=== PATIENT | female | born 1990 | race Caucasian/White ===

== ENCOUNTER → 2018-10-12 09:21 | Outpatient (CLI) | payer MEDICAID ==
[2011-09-18 17:51] VITALS: BMI 25.6
== END | disposition home or self-care (01) ==
LOC: D.LDO 09:21
DX: O26.899 Other specified pregnancy related conditions, unspecified trimester (principal); Z3A.00 Weeks of gestation of pregnancy not specified

== ENCOUNTER 2019-02-25 21:40 | Inpatient (IN) | payer MEDICAID ==
[~2019-02-25] VITALS: Ht 157.5 cm; Wt 72.6 kg
[2019-02-25 22:43] LABS: APPEARANCE HAZY (CLEAR); BACTERIA NONE SEEN /hpf (NONE SEEN); BILIRUBIN NEGATIVE (NEGATIVE); COLOR YELLOW (YELLOW); EPITHELIAL CELLS OCC /hpf (0-5); GLUCOSE NEGATIVE (NEGATIVE); KETONE NEGATIVE (NEGATIVE); NITRITE NEGATIVE (NEGATIVE); PROTEIN NEGATIVE (NEGATIVE); RED CELLS - URINE 0-5 /hpf (0-5); UROBILINOGEN NORMAL (NORMAL); WHITE CELLS - URINE RARE /hpf (0-5)
[2019-02-25 22:44] LABS: AMORPHOUS SEDIMENT >1+ /lpf (NONE SEEN)
[2019-02-25 22:46] LABS: UDS - AMPHET NEGATIVE QUAL (NEGATIVE); UDS - BARB NEGATIVE QUAL (NEGATIVE); UDS - BENZO NEGATIVE QUAL (NEGATIVE); UDS - COCAINE NEGATIVE QUAL (NEGATIVE); UDS - OPIATE NEGATIVE QUAL (NEGATIVE); UDS - PCP NEGATIVE QUAL (NEGATIVE); UDS - THC NEGATIVE QUAL (NEGATIVE)
[2019-02-26] MEDS ORDERED: TUMS X-STR300 MG PO (00:16)
[2019-02-26] MEDS ORDERED: PRENAVITE1 TAB PO (00:17)
[2019-02-26] MEDS ORDERED: OS-CAL500 MG PO (00:22)
[2019-02-26 00:24] VITALS: BP 128/82; Ht 157.5 cm; Wt 72.6 kg
[2019-02-26 00:55] LABS: HEMATOCRIT 33.5 % (36.0-48.0); HEMOGLOBIN 11.6 g/dL (12-16); MCH 29.7 pg (26.0-34.0); MCHC 34.6 g/dL (31.0-37.0); MCV 85.9 fL (80.0-100.0); MEAN PLATELET VOLUME 10.5 fL (7.4-10.4); RBC 3.9 10x6/uL (4.00-5.40); WBC 13.8 10x3/uL (4.8-10.8)
--- NOTE | 2019-02-26 12:15 | NUR ---
PT TRANSFERRED TO PP ROOM 1257 VIA W/C, FOB TRANSFERS BELONGINGS AND STAFF TRANSERS INFANT IN [facility]. PT ORIENTED TO NEW ROOM AND CALL LIGHT. PT REQUESTS MOTRIN FOR PAIN AND DECAF COFFEE WITH WATER. COFFEE AND WATER PROVIDED, WILL CONTACT MD REGARDING PT'S REQUEST FOR MOTRIN FOR PAIN.
--- NOTE | 2019-02-26 12:25 | NUR ---
DR JOSUE GIVES ORDERS FOR PP VAGINAL DELIVERY ORDER SET WITH MOTRIN 600MG PO Q6H PRN MILD PAIN AND NORCO 5/325MG PO Q4H PRN MOD-SEVERE PAIN.
--- NOTE | 2019-02-26 13:31 | NUR ---
THIS RN TO ROOM TO ADMIN MOTRIN TO PT REQUESTED. PT STATES PAIN IS NOW WORSE AND SHE WOULD LIKE TO TAKE SOMETHING STRONGER WELL. PT RATES PAIN 7/10 WITH , UTERINE CRAMPING AND PERINEAL PAIN. PT ADMIN PRN MOTRIN AND NORCO 5, SEE EMAR FOR DOC. PT ALSO PROVIDED WITH DERMAPLAST AND TUCKS FOR PERINEAL PAIN AND RECTAL PRESSURE. PT ENCOURAGED TO REST. INSTRUCTIONS GIVEN ON NOT SLEEPING WITH BABY IN BED. INFANT PLACED IN [place] PER PT REQUEST. PT INSTRUCTED TO CALL FOR ANY NEEDS. SRUx2, CL IN REACH. WILL CONT TO MONITOR.
--- NOTE | 2019-02-26 15:52 | NUR ---
Ice pack given per pt request. she rates pain/cramping at 0/10 at this time. side rails up x 2 with call light in reach.
--- NOTE | 2019-02-26 17:15 | NUR ---
THIS RN TO ROOM FOR PT CHECK. PT SITTING UP IN BED, TALKING WITH VISITOR. PT DENIES PAIN OR ANY NEEDS AT THIS TIME. SRUx2, CL IN REACH. WILL CONT TO MONITOR.
--- NOTE | 2019-02-26 18:11 | NUR ---
PT CALLS OUT [employer] SPECIALIST LIGHT WITH REQUEST FOR INFANT BLANKETS AND NURSE. THIS RN TO ROOM. BLANKETS PROVIDED. PT STATES INFANT WAS COUGHING/CHOKING ON SALIVA. THIS RN ASSESSES LUNG SOUNDS AND NOTED TO BE CLEAR x4. NO DISTRESS NOTED. PT REASSURED.
--- NOTE | 2019-02-26 19:15 | NUR ---
PT REC'D IN BATHROOM AT THIS TIME. DENIES PAIN. NO NEEDS VOICED AT THIS TIME. Ron CHA RN
--- NOTE | 2019-02-26 20:07 | NUR ---
PT MEDICATED WITH HYDROCODONE FOR CRAMPING. PAIN LEVEL OF 5 AT THIS TIME. WILL CONTINUE TO MONITOR. Ron CHA RN
[2019-02-26 21:53] VITALS: BP 112/53
--- NOTE | 2019-02-26 21:53 | NUR ---
PT REC'D IN BED AT THIS TIME. STATES PAIN IS A 2 AT THIS TIME. SALINE LOCK TO THE LEFT HAND INTACT AT THIS TIME. LUNGS CLEAR. BS+. FUNDUS FIRM AND MIDLINE U/2. SMALL LOCHIA NOTED. PT VOIDIND WELL AFTER DELIVERY. NO ACUTE DISTRESS NOTED. SIDERAIL UP FOR SAFETY. CALL LIGHT IN PT REACH. Ron CHA RN
--- NOTE | 2019-02-26 22:58 | NUR ---
PT REC'D IN BED AT THIS TIME. TOLERATING REGULAR DIET AT THIS TIME. NO DISTRESS NOTED AT THIS TIME. Ron CHA RN
--- NOTE | 2019-02-27 00:15 | NUR ---
PT RESTING AT THIS TIME. NO NEEDS VOICED. Ron CHA RN
--- NOTE | 2019-02-27 01:49 | NUR ---
PT MEDICATED WITH HYDROCODONE FOR PAIN LEVEL OF 7. WILL CONTINUE TO MONITOR. Ron CHA RN
--- NOTE | 2019-02-27 02:55 | NUR ---
PT ASLEEP AT THIS TIME. EASILY AWAKENED. PAIN IS 0 AT THIS TIME. WILL CONTINUE TO MONITOR. Ron CHA RN
--- NOTE | 2019-02-27 05:30 | NUR ---
PT REC'D ASLEEP AT THIS TIME. DID NOT AWAKEN. Ron CHA RN
[2019-02-27 07:18] LABS: RAPID PLASMA REAGIN Non Reactive (Non Reactive)
[2019-02-27 07:27] LABS: BASOPHILS 0.1 % (0-2); EOSINOPHILS 1.2 % (0-7); HEMATOCRIT 31.5 % (36.0-48.0); HEMOGLOBIN 10.6 g/dL (12-16); IMMATURE GRANULOCYTES 0.4 % (0-5); LYMPHOCYTES 17.4 % (15-50); MCH 29.5 pg (26.0-34.0); MCHC 33.7 g/dL (31.0-37.0); MCV 87.7 fL (80.0-100.0); MEAN PLATELET VOLUME 10.7 fL (7.4-10.4); MONOCYTES 5.3 % (2-11); NEUTROPHILS 75.6 % (40-80); PLATELET COUNT 147 10x3/uL (130-400); RBC 3.59 10x6/uL (4.00-5.40); WBC 13.9 10x3/uL (4.8-10.8)
--- NOTE | 2019-02-27 08:00 | NUR ---
AM ASSESSMENT COMPLETED CHARTED ON FLOWSHEET. MOTRIN GIVEN REQUESTED, PT STATES UNDERSTANDING THAT NORCO 5/325MG IS ALSO AVAILABLE FOR PAIN. SALINE LOCK REMOVED FROM LEFT HAND PER PT REQUEST, NO REDNESS NOTED BUT SHE COMPLAINS THAT TENDERNESS TO WRIST IS INCREASING, IV CATH NOTED TO BE INTACT. STATES THAT HER BLEEDING IS LIGHT AND SHE HAS NOT PASSED ANY CLOTS. ANNA MARIE PADS AND MESH BRIEFS PLACED IN BATHROOM REQUESTED. SIDE RAILS UP X 2 WITH PHONE AND CALL LIGHT IN REACH. INFANT IN CRIB AT BEDSIDE.
--- NOTE | 2019-02-27 08:39 | NUR ---
PAIN REASSESSMENT, RATES PAIN AT 2/10 AT THIS TIME. DENIES NEEDS.
--- NOTE | 2019-02-27 10:00 | NUR ---
PT CALLS OUT REQUESTING PAIN MED, THIS RN TO ROOM. PT RATES PAIN/CRAMPING AT 7/10 AND STATES SHE JUST FINISHED . MEDS GIVEN SCANNED ON EMAR. DENIES ANY OTHER NEEDS AT THIS TIME. CALL LIGHT IN REACH WITH SIDE RAILS UP X 2.
--- NOTE | 2019-02-27 10:45 | NUR ---
PAIN REASSESSMENT, PT UP WALKING ABOUT ROOM GETTING READY TO SHOWER, RATES PAIN AT 1/10. SIG OTHER AT BEDSIDE WITH .
--- NOTE | 2019-02-27 12:30 | NUR ---
VERBAL DISCHARGE ORDER RECEIVED FROM DR JOSUE.
--- NOTE | 2019-02-27 14:00 | NUR ---
NORCO 5/325MG WITH MOTRIN 600MG GIVEN PO BY Alec PASTOR RN.
[2019-02-27] MEDS ORDERED: HYDROCODON-ACE1 EAC7 PO (14:23)
[2019-02-27] MEDS ORDERED: IBUPROFEN600 MG PO (14:24)
--- NOTE | 2019-02-27 14:30 | NUR ---
VERBAL AND WRITTEN DISCHARGE INSTRUCTIONS GONE OVER PATIENT SHE IS ALSO GIVEN WRITTEN SCRIPT FOR NORCO 5/325MG AND MOTRIN 600MG. SHE STATES HER UNDERSTANDING TO ALL INFO AND DENIES ANY QUESTIONS. WILL CALL NURSERY WHEN SECURED INTO CARRIER.
--- NOTE | 2019-02-27 15:00 | NUR ---
pt taken out by wheelchair, per nursery nurse. infant secured in to carrier. home with sig other by private car.
== END 2019-02-27 15:00 | disposition home or self-care (01) | DRG 807 ==
LOC: D.LDO 21:40 → D.LD 23:15 → D.LDO 02-26 00:10 → D.LD 02-26 12:15
PROVIDERS: ADMIT Obstetrics & Gynecology; ATTEND Obstetrics & Gynecology
PROC: 10E0XZZ Delivery of Products of Conception, External Approach (ICD-10-PCS; principal; 2019-02-26)
PROC: 10907ZC Drainage of Amniotic Fluid, Therapeutic from Products of Conception, Via Natural or Artificial Opening (ICD-10-PCS; 2019-02-26)
PROC: 3E033VJ Introduction of Other Hormone into Peripheral Vein, Percutaneous Approach (ICD-10-PCS; 2019-02-26)
PROC: 0HQ9XZZ Repair Perineum Skin, External Approach (ICD-10-PCS; 2019-02-26)
DX: O99.334 Smoking (tobacco) complicating childbirth (principal); Z37.0 Single live birth; Z3A.40 40 weeks gestation of pregnancy; O70.0 First degree perineal laceration during delivery